=== PATIENT | female | born 1995 | race Caucasian/White ===

== ENCOUNTER 2023-11-18 19:40 | Emergency (ER) | payer MEDICAID, OTHER ==
[~2023-11-18] VITALS: Ht 177.8 cm; Wt 64.9 kg
[2023-11-18 20:31] VITALS: BP 99/68; TEMP 98.4; O2SAT 95
[2023-11-18] MEDS ORDERED: IBUP-1955 PO (21:44)
== END 2023-11-18 21:50 | disposition home or self-care (01) ==
LOC: ER 19:46
DX: S93.401A Sprain of unspecified ligament of right ankle, initial encounter (principal); X50.1XXA Overexertion from prolonged static or awkward postures, initial encounter; Y93.89 Activity, other specified; Y92.89 Other specified places as the place of occurrence of the external cause; Y99.8 Other external cause status
CPT/HCPCS: 73610-TC

== ENCOUNTER 2024-03-12 12:25 | Emergency (ER) | payer MEDICAID ==
[~2024-03-12] VITALS: Ht 175.3 cm; Wt 61.2 kg
[~2024-03-12 12:25] MED LIST: IBUP-1955 PO
[2024-03-12 12:40] VITALS: BP 117/71; TEMP 97.9
[2024-03-12 13:11] VITALS: O2SAT 99
== END 2024-03-12 13:19 | disposition home or self-care (01) ==
LOC: ER 12:45
DX: F19.10 Other psychoactive substance abuse, uncomplicated (principal); R00.0 Tachycardia, unspecified; R00.2 Palpitations; R23.2 Flushing; F41.9 Anxiety disorder, unspecified

== ENCOUNTER 2024-11-11 14:32 | Emergency (ER) | payer MEDICAID ==
[~2024-11-11] VITALS: Ht 175.3 cm; Wt 65.8 kg
[2024-11-11 14:44] VITALS: BP 100/62; TEMP 97.6; O2SAT 100
[2024-11-11] MEDS ORDERED: ACETAMINOPHEN ES 500 MG TABLET ONE (15:09)
[2024-11-11] MEDS ORDERED: KETOROLAC TROMETHAMINE INJ 30 MG/ML VIAL ONE (15:09)
[2024-11-11] MEDS: KETOROLAC TROMETHAMINE INJ 30 MG/ML VIAL IM ONE (15:15)
[2024-11-11] MEDS: ACETAMINOPHEN ES 500 MG TABLET PO ONE (15:15)
[2024-11-11] MEDS ORDERED: ACET-637 PO (15:34)
[2024-11-11] MEDS ORDERED: IBUP-1955 PO (15:34)
[2024-11-11 15:57] LABS: PREGNANCY TEST URINE QUAL NEGATIVE (NEGATIVE)
== END 2024-11-11 15:53 | disposition home or self-care (01) ==
LOC: ER 14:36
DX: R51.9 Headache, unspecified (principal); F17.200 Nicotine dependence, unspecified, uncomplicated
CPT/HCPCS: 99283; 96372; 84703; J1885